=== PATIENT | male | born 1950 | race Caucasian/White ===

== ENCOUNTER 2023-02-04 13:24 | Outpatient (CLI) | payer MEDICARE, BC, SELFPAY ==
--- NOTE | 2023-02-04 14:00 | CRLHL7_ITS ---
For Patients: As a result of the Century Cures Act, medical imaging exams and procedure reports are released immediately into your electronic medical record. You may view this report before your referring provider. If you have questions, please contact your health care provider. INDICATION: Left ICA occlusion, left vertebral artery occlusion. TECHNIQUE: CTA head with contrast bolus tracking, 3D angiographic rendering using maximum intensity projection (MIP) and images permanently archived. CTA neck with contrast bolus tracking, 3D angiographic rendering using maximum intensity projection (MIP) and images permanently archived. FINDINGS: CTA head: There are large posterior communicating arteries bilaterally. 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 There is no significant intracranial stenosis. No aneurysm is identified. The left ICA and left vertebral artery are chronically occluded. CTA neck: There is focal atherosclerotic plaque in the proximal right ICA resulting in mild stenosis, less than 50% by NASCET. The left ICA is occluded from its origin due to advanced atherosclerotic disease. The left vertebral artery is small and occluded as well. There is a moderate stenosis at the origin of the right vertebral artery. IMPRESSION: 1. 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 2. No significant intracranial atherosclerotic disease. 3. Mild proximal right ICA stenosis, less than 50% by NASCET. Please note that all CT scans at this facility use dose modulation, iterative reconstruction, and/or weight-based dosing when appropriate to reduce radiation dose to as low as reasonably achievable. Dictated by Jhonny Reyes MD @ 02/04/2023 3:21:49 PM (Electronically Signed)
--- NOTE | 2023-02-04 14:02 | CRLHL7_ITS ---
For Patients: As a result of the Century Cures Act, medical imaging exams and procedure reports are released immediately into your electronic medical record. You may view this report before your referring provider. If you have questions, please contact your health care provider. INDICATION: Left ICA occlusion, left vertebral artery occlusion. TECHNIQUE: CTA head with contrast bolus tracking, 3D angiographic rendering using maximum intensity projection (MIP) and images permanently archived. CTA neck with contrast bolus tracking, 3D angiographic rendering using maximum intensity projection (MIP) and images permanently archived. FINDINGS: CTA head: There are large posterior communicating arteries bilaterally. 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 There is no significant intracranial stenosis. No aneurysm is identified. The left ICA and left vertebral artery are chronically occluded. CTA neck: There is focal atherosclerotic plaque in the proximal right ICA resulting in mild stenosis, less than 50% by NASCET. The left ICA is occluded from its origin due to advanced atherosclerotic disease. The left vertebral artery is small and occluded as well. There is a moderate stenosis at the origin of the right vertebral artery. IMPRESSION: 1. 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 2. No significant intracranial atherosclerotic disease. 3. Mild proximal right ICA stenosis, less than 50% by NASCET. Please note that all CT scans at this facility use dose modulation, iterative reconstruction, and/or weight-based dosing when appropriate to reduce radiation dose to as low as reasonably achievable. Dictated by Jhonny Reyes MD @ 02/04/2023 3:21:30 PM (Electronically Signed)
== END 2023-02-04 13:25 | disposition home or self-care (01) ==
PROVIDERS: PCP Family Medicine; Visit Provider Radiology Neuroradiology
DX: I65.29 Occlusion and stenosis of unspecified carotid artery (principal); I65.22 Occlusion and stenosis of left carotid artery; I35.0 Nonrheumatic aortic (valve) stenosis
CPT/HCPCS: 70496; 70498; Q9967

== ENCOUNTER 2024-05-10 11:08 | Outpatient (CLI) | payer MEDICARE, BC, SELFPAY | END 2024-05-10 11:09 | disposition home or self-care (01) | LOC: AMB 05-12 08:43 | PROVIDERS: PCP Family Medicine; Visit Provider Family Medicine | DX: R07.89 Other chest pain (principal) | CPT/HCPCS: A0425; A0427 ==